=== PATIENT | male | born 1995 | race Two or more races ===

== ENCOUNTER 2021-08-28 16:40 | Emergency (ER) | payer MEDICAID ==
[~2021-08-28] VITALS: Ht 182.9 cm; Wt 81.6 kg
[2021-08-28 16:54] VITALS: BP 124/77
[2021-08-28] MEDS ORDERED: TDAP [DIPH/PERTUSSIS/TET] 0.5 ML VIAL IM ONE ×2 (17:00→17:02)
--- NOTE | 2021-08-28 17:02 | NUR ---
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 The patient rates pain 6/10. Will continue to monitor the patient.
--- NOTE | 2021-08-28 18:03 | NUR ---
CALLED SIVA FOR READ
[2021-08-28] MEDS ORDERED: SULF1TAB48 PO (18:45)
[2021-08-28] MEDS ORDERED: CLIN300C12 PO (18:45)
--- NOTE | 2021-08-28 19:09 | NUR ---
Patient discharged to home in stable condition. Written and verbal after care instructions given. Patient verbalizes understanding of instruction.
== END 2021-08-28 19:09 | disposition home or self-care (01) ==
LOC: ER 16:44
DX: S62.631B Displaced fracture of distal phalanx of left index finger, initial encounter for open fracture (principal); Z88.0 Allergy status to penicillin; Z79.899 Other long term (current) drug therapy; W31.0XXA Contact with mining and earth-drilling machinery, initial encounter; Y93.89 Activity, other specified; Y92.69 Other specified industrial and construction area as the place of occurrence of the external cause; Y99.0 Civilian activity done for income or pay
CPT/HCPCS: 29130; 73140; 90471; 90715; 99283; A6403